=== PATIENT | female | born 1945 | race Caucasian/White ===

== ENCOUNTER → 2016-12-13 12:09 | Outpatient (CLI) | payer MEDICARE, OTHER ==
[2014-08-04 06:17] VITALS: BMI 33.0
[~2016-12-13 12:09] MED LIST: CELEXA20 MG PO; PRILOSEC20 MG PO; ZETIA10 MG PO; ZIAC 2.5/6.25 M1 TAB PO
== END | disposition home or self-care (01) ==
LOC: D.MAMMO 12:09
DX: Z12.31 Encounter for screening mammogram for malignant neoplasm of breast (principal)

== ENCOUNTER → 2017-11-16 09:44 | Outpatient (CLI) | payer MEDICARE, OTHER ==
[2014-08-04 06:17] VITALS: BMI 33.0
[~2017-11-16 09:44] MED LIST changes: +ATARAX 25 MG TA25 MG PO; +ATIVAN1 MG PO; +STERAPRED DS 1210 MG PO
== END | disposition home or self-care (01) ==
LOC: D.US 09:44
DX: R10.11 Right upper quadrant pain (principal)

== ENCOUNTER → 2017-12-01 08:20 | Outpatient (CLI) | payer MEDICARE, OTHER ==
[2014-08-04 06:17] VITALS: BMI 33.0
== END | disposition home or self-care (01) ==
LOC: D.NM 08:00
DX: R10.11 Right upper quadrant pain (principal)

== ENCOUNTER 2017-12-10 09:19 | Emergency (ER) | payer MEDICARE, OTHER ==
[~2017-12-10] VITALS: Ht 157.5 cm; Wt 83.2 kg
[~2017-12-10 09:19] MED LIST changes: -ATARAX 25 MG TA25 MG PO; -ATIVAN1 MG PO; -STERAPRED DS 1210 MG PO
[2017-12-10 09:24] VITALS: Ht 157.5 cm; Wt 83.2 kg
[2017-12-10] MEDS ORDERED: ATARAX 25 MG TA25 MG PO (10:07)
[2017-12-10] MEDS ORDERED: ATIVAN1 MG PO (10:07)
[2017-12-10] MEDS ORDERED: STERAPRED DS 1210 MG PO (10:07)
[2017-12-10 10:37] VITALS: BP 145/98
== END 2017-12-10 10:39 | disposition home or self-care (01) ==
LOC: D.ER 09:19
DX: L25.9 Unspecified contact dermatitis, unspecified cause (principal); I10 Essential (primary) hypertension